=== PATIENT | male | born 1990 | race Caucasian/White ===

== ENCOUNTER 2024-11-01 10:54 | Emergency (ER) | payer OTHER ==
[~2024-11-01] VITALS: Ht 182.9 cm; Wt 86.3 kg
[2024-11-01 11:07] VITALS: BP 129/83
[2024-11-01] MEDS ORDERED: ASPIRIN 81 MG/TAB PO ONE (11:10)
[2024-11-01 11:25] LABS: BASO% 0.8 % (0-3); EOS% 6.6 % (0-8); HEMATOCRIT 43.2 % (39.0-50.0); HEMOGLOBIN 14.2 g/dl (14.0-18.0); IMMATURE GRANULOCYTES 0.3 % (0.0-5.0); LYMPH% 34.7 % (15-41); MEAN CELL VOLUME 87.4 fL CALC (80.0-100.0); MEAN CORPUSCULAR HGB 28.7 pG CALC (26.0-32.0); MEAN CORPUSCULAR HGB CONC 32.9 g/dL CAL (32.0-36.0); MONO% 5.3 % (2-13); NEUT# 3.94 thou/uL (1.82-7.42); NEUT% 52.3 % (42-76); RED BLOOD COUNT 4.94 mill/uL (4.70-6.10); RED CELL DISTRI WIDTH 12.1 % (11.5-15.5)
[2024-11-01 11:30] VITALS: BP 134/77
[2024-11-01 11:36] LABS: ALBUMIN 4.6 g/dL (3.2-5.0); ALKALINE PHOSPHATASE 48 u/l (38-126); ANION GAP 13 (6-22 (CALC)); BILIRUBIN, TOTAL 0.8 mg/dL (0.2-1.3); BUN 18 mg/dL (9-20); BUN/CREATININE RATIO 21 (12-20 (CALC)); CARBON DIOXIDE 24 mmol/l (22-30); CHLORIDE 107 mmol/l (95-108); CREATININE 0.9 mg/dL (0.7-1.3); ESTIMATED GFR 115 ML/MIN (>=90 (CALC)); POTASSIUM 4.4 mmol/l (3.5-5.1); SGOT/AST 35 u/l (17-59); SODIUM 139 mmol/l (137-146); TOTAL PROTEIN 7.8 g/dL (6.3-8.2)
[2024-11-01 11:46] LABS: PROTHROMBIN TIME 10.3 SECONDS (9.0-12.5)
[2024-11-01 12:00] VITALS: BP 124/75
[2024-11-01 12:08] VITALS: BP 124/75
== END 2024-11-01 12:22 | disposition home or self-care (01) | DRG 313 ==
LOC: ED 10:54
PROVIDERS: Family Medicine
DX: R07.89 Other chest pain (principal)